=== PATIENT | female | born 1975 | race Caucasian/White ===

== ENCOUNTER → 2018-05-30 | Outpatient (CLI) | payer MEDICAID | LOC: FIMAGING 15:54 | PROVIDERS: ATTEND Registered Nurse | DX: M25.511 Pain in right shoulder (principal) ==

== ENCOUNTER → 2018-06-08 | Outpatient (CLI) | payer MEDICAID | LOC: EMCIMAGING 15:45 | PROVIDERS: ATTEND Registered Nurse | DX: M25.511 Pain in right shoulder (principal) | CPT/HCPCS: 73221-PN ==